=== PATIENT | male | born 1995 | race African-American/Black ===

== ENCOUNTER 2019-01-09 11:18 | Emergency (ER) | payer MEDICAID ==
[~2019-01-09] VITALS: Ht 172.7 cm; Wt 88.0 kg
[2019-01-09] MEDS ORDERED: CEFTRIAXONE SODIUM 250 MG/VIAL IM ONE (15:15)
[2019-01-09] MEDS ORDERED: LIDOCAINE HCL 1% 20ML VIAL (Pyxis) INJ INFIL ONE (15:15)
[2019-01-09] MEDS ORDERED: AZITHROMYCIN 500 MG TABLET PO ONE (15:15)
[2019-01-09 15:25] LABS: CLARITY URINE CLOUDY (CLEAR); COLOR URINE YELLOW (YELLOW); KETONES URINE TRACE (NEGATIVE); LEUKOCYTE ESTERASE URINE 2+ (NEGATIVE); NITRITE URINE NEGATIVE (NEGATIVE); OCCULT BLOOD URINE NEGATIVE (NEGATIVE); PROTEIN URINE NEGATIVE (NEGATIVE); SPECIFIC GRAVITY URINE 1.032 (1.005-1.030)
[2019-01-09 16:01] VITALS: BP 128/61
[2019-01-14 04:12] LABS: CHLAMYDIA TRACHOMATIS NAA Positive (Negative); NEISSERIA GONORRHOEAE NAA Positive (Negative)
== END 2019-01-09 16:01 | disposition home or self-care (01) ==
LOC: ER 11:18
DX: N34.2 Other urethritis (principal); F17.200 Nicotine dependence, unspecified, uncomplicated
CPT/HCPCS: 81003; 87491; 87591; 96372; 99283; J0696; J3490; Z7610